=== PATIENT | male | born 1970 | race Two or more races ===

== ENCOUNTER 2019-01-20 14:30 | Inpatient (IN) | payer SELFPAY ==
[~2019-01-20] VITALS: Ht 165.1 cm; Wt 63.0 kg
[2019-01-20 16:07] LABS: Basophils # (auto) 0 uL; Basophils % (auto) 0.1 % (0.0-2.0); Eosinophils # (auto) 0 uL; Eosinophils % (auto) 0.1 % (0.0-7.0); Hematocrit 35.1 % (41.0-53.0); Hemoglobin 11.6 g/dL (13.5-17.5); Lymphocytes # (auto) 1.2 uL; Lymphocytes % (auto) 8.5 % (10.0-50.0); Mean Corpuscular Hemoglobin 28.8 pg (28.0-32.0); Mean Corpuscular Hgb Conc. 33.2 g/dL (32.0-36.0); Monocytes % (auto) 7.3 % (0.0-12.0); Neutrophils # (auto) 11.8 uL; Platelet Count (auto) 409 10^3/uL (140-450); Red Blood Cells 4.03 10^6/uL (4.5-5.90); Red Cell Distribution Width 14.4 % (11.8-14.3)
[2019-01-20 16:21] LABS: Urine Bacteria NONE SEEN /hpf (None Seen); Urine Blood 1+ /uL (Negative); Urine Mucus FEW (None Seen); Urine Specific Gravity 1.016 (1.001-1.035); Urine WBC 1 /hpf (0 - 3)
[2019-01-20 18:04] LABS: Albumin 2.4 g/dL (3.4-5.0); BUN/Creatinine Ratio 12.1; Bilirubin, Total 1.1 mg/dL (0.2-1.0); Calcium 8.1 mg/dL (8.5-10.1); Potassium 3.6 mmol/L (3.5-5.1)
[2019-01-20] MEDS ORDERED: SODIUM CHLORIDE 0.9% 1,000 ML IVB ONE (22:03)
[2019-01-20] MEDS ORDERED: ONDANSETRON HCL 4 MG/2 ML VIAL IV ONE (22:15)
[2019-01-20] MEDS ORDERED: IOHEXOL 300 MG/ML 100ML BOTTLE IJ ONE (22:30)
[2019-01-21] MEDS ORDERED: LEVOFLOXACIN 750MG 150 ML IV ONE (01:45)
[2019-01-21] MEDS ORDERED: ONDANSETRON HCL 4 MG/2 ML VIAL IV PRN (02:45)
[2019-01-21] MEDS ORDERED: ACETAMINOPHEN 325 MG TAB PO PRN (02:45)
[2019-01-21] MEDS ORDERED: cefTRIAXone 1GM/50ML D5W 50 ML IV ONE (02:45)
[2019-01-21] MEDS ORDERED: metroNIDAZOLE 500MG/100ML 100 ML IV ONE (02:45)
[2019-01-21] MEDS ORDERED: MORPHINE SULF INJ 2 MG/ML SYRINGE 1ML IV PRN (04:00)
--- NOTE | 2019-01-21 04:20 | NUR ---
MS admit from ER SAE CHAVES admitted to tele/MS after SBAR received. Patient oriented to Carlene campo RN, unit, room, bed, and unit policies regarding patient care and visiting hours. Patient weighed by bedscale and encouraged to call if they need something. All questions and concerns addressed, patient verbalized understanding. PATIENT BROUGHT UP BY ESTHETICIAN/SKIN THERAPIST JOHNNY, BROOKLYNN RECEIVED. PATIENT IS A/OX4, PRIMARILY YI SPEAKING. SON IS AT BEDSIDE. PATIENT IS ABLE TO VERBALIZE ALL NEEDS. PATIENT DENIES ANY PAIN AT THIS TIME.POC DISCUSSED. EDUCATED PT THAT HE IS NPO AT THIS TIME. PENDING CONSULTS AND PROCEDURES DISCUSSED WITH PATIENT AND SON. ALL QUESTIONS ANSWERED.
[2019-01-21] MEDS: SODIUM CHLORIDE 0.9% 1,000 ML IV SCH ×2 (04:48→17:29)
[2019-01-21 05:08] VITALS: BP 104/61
[2019-01-21 05:33] VITALS: BP 104/61
--- NOTE | 2019-01-21 07:22 | NUR ---
CLOSING NOTE REPORT ENDORSED TO DAY SHIFT RN PT IS SLEEPING, NO S/S OF DISTRESS CALL LIGHT WITHIN REACH
--- NOTE | 2019-01-21 07:30 | NUR ---
Opening Shift Note Assuming care of patient at this time. Patient is resting in bed with bed locked and lowered, side rails up x2. Patient denies pain at this time. Patient shows no signs or symptoms of distress or shortness of breath at this time. Patient is micronesian speaking. Instructed patient on the plan of care for today and to call for assistance as needed. Patient was able to verbalize understanding. Call light within reach. Will continue to round hourly and as needed.
[2019-01-21 08:47] VITALS: BP 113/60
[2019-01-21 09:15] LABS: Basophils # (auto) 0 uL; Basophils % (auto) 0.4 % (0.0-2.0); Eosinophils # (auto) 0 uL; Eosinophils % (auto) 0.1 % (0.0-7.0); Hematocrit 30.8 % (41.0-53.0); Hemoglobin 10.2 g/dL (13.5-17.5); Lymphocytes # (auto) 0.8 uL; Lymphocytes % (auto) 6.3 % (10.0-50.0); Mean Corpuscular Hemoglobin 28.4 pg (28.0-32.0); Mean Corpuscular Volume 86.2 fL (80.0-100.0); Monocytes # (auto) 0.9 uL; Monocytes % (auto) 7.1 % (0.0-12.0); Neutrophils # (auto) 10.7 uL; Neutrophils % (auto) 86.1 % (37.0-80.0); Platelet Count (auto) 370 10^3/uL (140-450); Red Blood Cells 3.58 10^6/uL (4.5-5.90); Red Cell Distribution Width 14.9 % (11.8-14.3); White Blood Cell 12.4 10^3/uL (4.4-10.8)
[2019-01-21 10:14] LABS: Chloride 107 mmol/L (98-107); Potassium 3.5 mmol/L (3.5-5.1); Sodium 137 mmol/L (136-145)
[2019-01-21 10:15] LABS: Anion Gap 10 (5-15); BUN/Creatinine Ratio 19.2; Blood Urea Nitrogen 10 mg/dL (7-18); Calcium 7.3 mg/dL (8.5-10.1); Carbon Dioxide 20 mmol/L (21-32); GFR African American 220 mL/min; GFR Non-African American 182 mL/min; Glucose 89 mg/dL (74-106)
[2019-01-21 11:22] LABS: Hepatitis A Ab IgM Negative
[2019-01-21 11:23] LABS: Hepatitis B Core IgM Negative
[2019-01-21 11:25] LABS: Hepatitis B Surface Antigen Negative (Negative); Hepatitis C Antibody Negative (Negative)
[2019-01-21] MEDS: PANTOPRAZOLE 40 MG/10 ML VIAL IV SCH (11:26)
--- NOTE | 2019-01-21 12:07 | NUR ---
NUTRITION CONSULT/ASSESSMENT NOTES Please refer to link notes of nutrition screen form filed under the intervention section of the plan of care for further details. Est. Needs: 1550 kcal to 1850 kcal (25-30 kcal/kgBW), 62 gms to 74 gms pro (1.0-1.2 gms/kgBW). Will continue to monitor pertinent labs and reassess nutrient need prn Thank you for this consult. Addendum: 01/21/19 at [address] Amended: Links added.
[2019-01-21 13:00] VITALS: BP 128/85
[2019-01-21] MEDS: metroNIDAZOLE 500MG/100ML 100 ML IV SCH ×2 (15:00→22:19)
[2019-01-21 17:20] VITALS: BP 113/68
[2019-01-21] MEDS: FLUCONAZOLE 200MG/100ML 100 ML IV SCH ×2 (17:28→18:47)
--- NOTE | 2019-01-21 18:54 | NUR ---
Closing Note Patient is resting in bed at this time. Patient has had a clear, liquid diet for dinner and tolerated well. Patient has no pain at this time. Will endorse care to the shift coordinator RN.
[2019-01-21] MEDS ORDERED: FLUCONAZOLE 200MG/100ML 100 ML IV SCH (19:00)
--- NOTE | 2019-01-21 19:25 | NUR ---
RECEIVED PATIENT LYING IN BED, AWAKE, ALERT, ORIENTED X4. NO S/S OF RESPIRATORY DISTRESS, DENIES SOB AND CHEST PAIN. ORIENTED ON PLAN OF CARE. BED IS LOCKED AND IN LOWEST LEVEL, SIDE RAILS UP X2, CALL LIGHT WITHIN REACH. WILL CONTINUE TO MONITOR
[2019-01-21] MEDS: cefTRIAXone 1GM/50ML D5W 50 ML IV SCH (21:08)
[2019-01-21 22:01] VITALS: BP 110/67
[2019-01-22 05:26] VITALS: BP 108/64
[2019-01-22] MEDS: metroNIDAZOLE 500MG/100ML 100 ML IV SCH ×3 (05:32→21:39)
[2019-01-22 06:59] LABS: Basophils # (auto) 0 uL; Basophils % (auto) 0.3 % (0.0-2.0); Eosinophils # (auto) 0 uL; Eosinophils % (auto) 0.2 % (0.0-7.0); Hemoglobin 10.4 g/dL (13.5-17.5); Lymphocytes # (auto) 0.6 uL; Lymphocytes % (auto) 5.5 % (10.0-50.0); Mean Corpuscular Hemoglobin 28.8 pg (28.0-32.0); Mean Corpuscular Hgb Conc. 33.5 g/dL (32.0-36.0); Mean Corpuscular Volume 86.1 fL (80.0-100.0); Monocytes # (auto) 0.8 uL; Monocytes % (auto) 7.2 % (0.0-12.0); Neutrophils # (auto) 10.2 uL; Neutrophils % (auto) 86.8 % (37.0-80.0); Platelet Count (auto) 401 10^3/uL (140-450); Red Blood Cells 3.61 10^6/uL (4.5-5.90); Red Cell Distribution Width 14.8 % (11.8-14.3); White Blood Cell 11.7 10^3/uL (4.4-10.8)
[2019-01-22 07:09] LABS: Potassium 3.5 mmol/L (3.5-5.1)
[2019-01-22 07:14] LABS: Albumin 1.8 g/dL (3.4-5.0); BUN/Creatinine Ratio 14.8; Bilirubin, Total 0.6 mg/dL (0.2-1.0); Calcium 7.2 mg/dL (8.5-10.1); Magnesium 2.3 mg/dL (1.6-2.6); Total Protein 6.4 g/dL (6.4-8.2)
--- NOTE | 2019-01-22 07:30 | NUR ---
Opening Shift Note Assuming care of patient at this time. Patient is resting in bed. Bed is locked and lowered with side rails up x2. Patient shows no signs or symptoms of distress. Patient denies pain. Instructed patient on the plan of care and to call for assistance as needed. Call light within reach. Will continue to round hourly and as needed.
--- NOTE | 2019-01-22 07:31 | NUR ---
CARE ENDORSED TO AM SHIFT RN
[2019-01-22 08:10] LABS: RPR Non Reactive (Non Reactive)
[2019-01-22 09:00] VITALS: BP 113/66
[2019-01-22 09:30] LABS: Alcohol, Urine < 3.0 mg/dL (0-5); Amphetamine Screen, Urine NEGATIVE (NEGATIVE); Barbiturate Scree,Urine NEGATIVE (NEGATIVE); Benzodiazephine Screen, Urine NEGATIVE (NEGATIVE); Cannabinoid Screen, Urine NEGATIVE (NEGATIVE); Cocaine Screen, Urine NEGATIVE (NEGATIVE); Opiate Scree,Urine NEGATIVE (NEGATIVE); Phencyclidine Screen, Urine NEGATIVE (NEGATIVE)
[2019-01-22] MEDS: PANTOPRAZOLE 40 MG/10 ML VIAL IV SCH (10:10)
[2019-01-22] MEDS: FLUCONAZOLE 200MG/100ML 100 ML IV SCH (10:12)
[2019-01-22] MEDS: SODIUM CHLORIDE 0.9% 1,000 ML IV SCH ×3 (10:16→20:29)
--- NOTE | 2019-01-22 10:20 | NUR ---
Re: Family at bedside Patient has 4 family members at bedside at this time.
--- NOTE | 2019-01-22 10:34 | NUR ---
Re: Advance Diet as Tolerated Advanced patient's diet at this time to full liquid. Patient has had a clear liquid diet for dinner last night and breakfast this morning. Patient has tolerated well. Patient has no abdominal pain, nausea/vomiting, or diarrhea. Will assess how patient tolerates full liquid.
--- NOTE | 2019-01-22 12:47 | NUR ---
Re: Doctor at bedside Dr. Talamantes at bedside discussing plan of care with patient, this RN, and ALAN Zayas who translated. Reviewed labs and addressed all questions and concerns with patient.
[2019-01-22 12:58] VITALS: BP 105/66
[2019-01-22 17:00] VITALS: BP 110/68
--- NOTE | 2019-01-22 18:30 | NUR ---
at station Dr. Talamantes at nurse's station discussing plan of care with this RN.
--- NOTE | 2019-01-22 19:08 | NUR ---
Closing Note Patient is resting in bed. Patient shows no signs or symptoms of distress or pain. Bed is locked and lowered with side rails up x2. Call light within reach. Report given. Will endorse care to the fast food shift supervisor RN.
[2019-01-22] MEDS: cefTRIAXone 1GM/50ML D5W 50 ML IV SCH (20:29)
[2019-01-22 22:00] VITALS: BP 114/67
[2019-01-23 05:00] VITALS: BP 99/60
[2019-01-23] MEDS: metroNIDAZOLE 500MG/100ML 100 ML IV SCH ×2 (05:37→14:00)
[2019-01-23] MEDS: SODIUM CHLORIDE 0.9% 1,000 ML IV SCH ×2 (06:00→16:00)
--- NOTE | 2019-01-23 07:34 | NUR ---
CARE ENDORSED TO AM SHIFT RN
[2019-01-23 09:00] VITALS: BP 111/67
[2019-01-23] MEDS: PANTOPRAZOLE 40 MG/10 ML VIAL IV SCH (10:27)
[2019-01-23] MEDS: FLUCONAZOLE 200MG/100ML 100 ML IV SCH (10:27)
[2019-01-23 13:00] VITALS: BP 101/66
--- NOTE | 2019-01-23 15:02 | NUR ---
Nutrition Follow-up Notes Wt.: 63.0 kg as of yesterday. Pt's sitting up in bedside chair, denies any discomfort except for diarrhea (2x) since morning, per pt. Per pt, he's not sure about his weight, however most likely lost weight d/t decreased food intake r/t his GI condition. Pt's usually has good appetite, eat meals regularly, NKFA and not into any special diets service captain. Pt's currently on Regular diet with adequate PO intake aeb 100% ave. consumed meals (x5) in last 2 days. Est. Needs: 1550 kcal to 1850 kcal (25-30 kcal/kgBW), 62 gms to 74 gms pro (1.0-1.2 gms/kgBW). Will continue to monitor pertinent labs and reassess nutrient need prn Labs: No new labs today; 01/22/19 Cr 0.54 L, Alb 1.8 L, ALT 64 H Skin: Bennie scale 21, low risk, skin intact per quality internship. GI: Pt had 1 BM this morning per quality internship. PES: Resolved: Increased nutrient needs r/t acute/chronic medical condition aeb Elevated liver function tests,Pyelonephritis, reported wt loss, severe hypoalbuminemia, NPO. Altered nutrition related lab values r/t current/chronic medical condition aeb Elevated liver function tests,Pyelonephritis, reported wt loss, severe hypoalbuminemia, NPO. Will continue to monitor PO intake, skin status, pertinent labs and weight trend. F/u in 3 to 5 days. Rec.: 1.) If Albumin level continues trending down, consider Prostat 1 pkt BID. 2.) Continue close supervision with meals. 3.) Refer to RD for further nutrition education and weight monitoring upon discharged. 4.) Continue current plan of care.
--- NOTE | 2019-01-23 16:16 | NUR ---
assessment re: Insurance Patient is a 48 year old male who is alert and oriented. Patients cognitive abilities are intact. Prior to admission patient lived home with family and functioned independently. Per patient he will return home to his prior living arrangements post discharge and family will transport him home. Patient has no insurance. Patient has been assessed by Dhiraj Bragg of [facility]. Patient may qualify for Medi-mu[employer]h if she brings back all his paperwork. I have provided patient with resources for [facility], Dr. Samuel, and [facility] urgent care for follow up visits. I have provided patient with a prescription card from community assistance program.I informed patient he has a right to speak to a family welfare social work professor regarding all care. Patient has a new diagnosis of HIV. Patient is very concerned about his family. I have provided patient with resources for HIV support groups and resources for free therapist. I have provided patient with emotional support. I informed patient he has a right to participate in any and all discharge planning. Patient is aware of visiting hours on the hospital floor. I informed patient he has a right to privacy. Patient does not have a POA and advanced directive. I have offered patient information on POA and advanced directives. I informed the patient the advantages and benefits of having an Advanced Directive. Patient verbalized understanding and agreed to discharge plan. Addendum: 01/23/19 at 1624 by Ayanna DIXON Amended: Links added.
[2019-01-23 16:48] VITALS: BP 101/69
--- NOTE | 2019-01-23 19:05 | NUR ---
Discharge instructions given as ordered. Encourage to follow up with PMD as instructed. All questions and concerns addressed. Patient verbalized understanding. Medication reconciliation form completed and copy given to patient. IV removed with catheter intact, pressure dressing applied . Patient taken to vehicle via wheelchair with all personal belongings, accompanied by staff and family member. No distress noted at time of departure.
== END 2019-01-23 19:05 | disposition home or self-care (01) | DRG 157 ==
LOC: ER 14:30 → OVERFLOW 01-21 02:39 → WEST WING 01-21 04:13
PROVIDERS: ADMIT Nurse Practitioner Family; ATTEND Internal Medicine
DX: B37.0 Candidal stomatitis (principal); E43 Unspecified severe protein-calorie malnutrition; E87.1 Hypo-osmolality and hyponatremia; N12 Tubulo-interstitial nephritis, not specified as acute or chronic; J98.11 Atelectasis; D64.9 Anemia, unspecified; K82.4 Cholesterolosis of gallbladder; M43.16 Spondylolisthesis, lumbar region; K52.9 Noninfective gastroenteritis and colitis, unspecified; Z90.49 Acquired absence of other specified parts of digestive tract; Z68.23 Body mass index [BMI] 23.0-23.9, adult
CPT/HCPCS: 36415; 74177; 76700; 80048; 80053; 80074; 80307; 81001; 82270; 83605; 83735; 84439; 84443; 85025; 86360; 86592; 86701; 86703; 87040; 87045; 87493; 87899; 94761; 96361; 96374; 96375; C9113; G0378; J0696; J1450; J1956; J2405; J3490